=== PATIENT | female | born 1970 | race Caucasian/White ===

== ENCOUNTER 2017-11-19 11:57 | Emergency (ER) | payer MEDICAID ==
[~2017-11-19] VITALS: Ht 160 cm; Wt 72.6 kg
[2017-11-19 12:10] VITALS: BP 161/75
[2017-11-19] MEDS ORDERED: ORE25 PO (12:14)
[2017-11-19] MEDS ORDERED: AMLO10TA PO (12:14)
--- NOTE | 2017-11-19 12:18 | NUR ---
47Y/F BIB SELF C/O DIARRHEA X 2 DAYS, AND PAIN TO THE BACK OF HER NECK AND PALPITATIONS LAST NIGHT WITH SOME NAUSEA TODAY; DENIES VOMITING; PT C/O FEELING ANXIOUS ALL OVER HER BODY AND FEELING HER HEART POUNDING. AAOX4, PATIENT STATES PAIN OF 0/10 AT THIS TIME; VSS; PATIENT POSITIONED FOR COMFORT; HOB ELEVATED; BEDRAILS UP X 1; BED DOWN. ER MD MADE AWARE OF PT STATUS.
--- NOTE | 2017-11-19 12:50 | NUR ---
Patient discharged with v/s stable. Written and verbal after care instructions given and explained. Patient alert, oriented and verbalized understanding of instructions. Ambulatory with steady gait. All questions addressed prior to discharge. ID band removed. Patient advised to follow up with PMD. Rx of zofran and lomotil given. Patient educated on indication of medication including possible reaction and side effects. Opportunity to ask questions provided and answered.
[2017-11-19 12:51] VITALS: BP 158/73
== END 2017-11-19 12:50 | disposition home or self-care (01) ==
LOC: MED 11:57
DX: R11.0 Nausea (principal); R19.7 Diarrhea, unspecified; G44.209 Tension-type headache, unspecified, not intractable; F43.9 Reaction to severe stress, unspecified; F41.9 Anxiety disorder, unspecified; I10 Essential (primary) hypertension; Z79.899 Other long term (current) drug therapy
CPT/HCPCS: 99283

== ENCOUNTER 2021-02-02 19:41 | Emergency (ER) | payer MEDICAID ==
[~2021-02-02] VITALS: Ht 157.5 cm; Wt 78.0 kg
[~2021-02-02 19:41] MED LIST: AMLO10TA PO; HYDR-4004 PO
[2021-02-02 19:46] VITALS: BP 162/93
--- NOTE | 2021-02-02 20:08 | NUR ---
PT BIB SELF FOR C/O CHEST PRESSURE THAT BEGAN SATURDAY 01/20. PT DENIES PAIN OR RADIATING DISCOMFORT. PT STATES SHE JUST WANTED TO COME IN AND MAKE SURE IT WAS NOTHING SERIOUS. DENIES N/V/D, FEVER, CHILLS, SOB. NO NOTED RESPIRATORY DISTRESS OR WEAKNESS. AMBULATORY. A & O X4. MED HX: HTN, HYPERTHYROID, ELEVATED CHOLESTEROL, VIT D DEF. ALLERGIES: NKA
[2021-02-02] MEDS ORDERED: ASPIRIN 325 MG TAB PO ONE (20:15)
[2021-02-02] MEDS ORDERED: LORazepam 1 MG TAB PO ONE (20:15)
--- NOTE | 2021-02-02 20:23 | NUR ---
LAB AT BEDSIDE.
--- NOTE | 2021-02-02 20:35 | NUR ---
XRAY AT BEDSIDE.
[2021-02-02 20:37] LABS: BASOPHILS # (AUTO) 0.1 K/uL (0.00-0.22); BASOPHILS % (AUTO) 0.9 % (0.0-2.0); EOSINOPHILS # (AUTO) 0.2 K/uL (0-0.4); EOSINOPHILS % (AUTO) 2.6 % (0.0-4.0); HEMATOCRIT 37.2 % (36-48); HEMOGLOBIN 12.9 g/dL (12.0-16.0); LYMPHOCYTES # (AUTO) 2.4 K/uL (2.5-16.5); LYMPHOCYTES % (AUTO) 27.7 % (20.5-51.1); MEAN CORPUSCULAR HEMOGLOBIN 30 pg (27-31); MEAN CORPUSCULAR HGB CONC 35 g/dL (33-37); MEAN CORPUSCULAR VOLUME 86.6 fL (80-94); MONOCYTES # (AUTO) 0.6 K/uL (0.8-1.0); MONOCYTES % (AUTO) 6.6 % (1.7-9.3); NEUTROPHILS # (AUTO) 5.4 K/uL (1.8-7.7); NEUTROPHILS % (AUTO) 62.2 % (42.2-75.2); PLATELET COUNT (AUTO) 299 K/uL (140-450); RED CELL DISTRIBUTION WIDTH 13.5 % (11.6-13.7); WHITE BLOOD COUNT (AUTO) 8.7 K/uL (4.8-10.8)
[2021-02-02 20:52] LABS: ANION GAP 11.7 (8-16); CARBON DIOXIDE 27.2 mmol/L (21-32); CREATININE 0.8 mg/dL (0.6-1.3); POTASSIUM 3.9 mmol/L (3.5-5.1); TOTAL BILIRUBIN 0.4 mg/dL (0.0-1.0)
--- NOTE | 2021-02-02 21:00 | NUR ---
PT REPORTS "I FEEL SO MUCH BETTER AFTER THE MEDICINE." PT REPORTS STRESS AT WORK AND HER MOTHER RECENTLY PASSED. ERMD MADE AWARE.
--- NOTE | 2021-02-02 21:39 | NUR ---
Patient discharged with v/s stable. Written and verbal after care instructions given and explained. Patient verbalized understanding. Ambulatory with steady gait. All questions addressed prior to discharge. Advised to follow up with PMD.
== END 2021-02-02 21:39 | disposition home or self-care (01) ==
LOC: MED 19:41
DX: R07.89 Other chest pain (principal); R20.2 Paresthesia of skin; I10 Essential (primary) hypertension; E07.9 Disorder of thyroid, unspecified; Z79.899 Other long term (current) drug therapy
CPT/HCPCS: 36415; 71045; 80053; 84484; 85025; 93005; 99285

== ENCOUNTER 2023-03-27 18:47 | Emergency (ER) | payer MEDICAID ==
[~2023-03-27] VITALS: Ht 157.5 cm; Wt 83.9 kg
[2023-03-27 19:30] VITALS: BP 139/90; PULSE 82; RESP 16; TEMP 98.1; O2SAT 100
[2023-03-27 20:51] LABS: APPEARANCE,URINE CLEAR (CLEAR); BILIRUBIN,URINE NEGATIVE (NEGATIVE); BLOOD, URINE NEGATIVE (NEGATIVE); COLOR,URINE YELLOW (YELLOW); LEUKOCYTE ESTERASE ,URINE TRACE (NEGATIVE); NITRITE, URINE NEGATIVE (NEGATIVE); PROTEIN,URINE NEGATIVE (NEGATIVE); UGLUCOSE NEGATIVE (NEGATIVE); UROBILINOGEN,URINE 0.2 EU/dL (0.2 - 1)
[2023-03-27 20:59] LABS: BACTERIA,URINE None Seen /HPF (None Seen); MUCUS,URINE 3+ /LPF (None Seen); RBC,URINE 0-5 /HPF (0-5); SQUAMOUS EPITHELIAL CELL,UR 4-10 (MOD) /LPF (0-3 (FEW)); TRICHOMONAS,URINE None Seen /HPF (None Seen); WBC,URINE 0-5 /HPF (0-5); YEAST,URINE None Seen /HPF (None Seen)
[2023-03-27 21:01] LABS: BASOPHILS % (AUTO) 0.3 % (0.0-2.0); EOSINOPHILS # (AUTO) 0.2 K/uL (0-0.4); EOSINOPHILS % (AUTO) 2.7 % (0.0-4.0); HEMATOCRIT 39.6 % (36-48); HEMOGLOBIN 13.6 g/dL (12.0-16.0); LYMPHOCYTES # (AUTO) 1.4 K/uL (2.5-16.5); LYMPHOCYTES % (AUTO) 16.4 % (20.5-51.1); MEAN CORPUSCULAR HEMOGLOBIN 29 pg (27-31); MEAN CORPUSCULAR HGB CONC 34 g/dL (33-37); MEAN CORPUSCULAR VOLUME 84.5 fL (80-94); MONOCYTES # (AUTO) 0.4 K/uL (0.8-1.0); MONOCYTES % (AUTO) 4.7 % (1.7-9.3); NEUTROPHILS # (AUTO) 6.3 K/uL (1.8-7.7); NEUTROPHILS % (AUTO) 75.9 % (42.2-75.2); PLATELET COUNT (AUTO) 283 K/uL (140-450); RED BLOOD CELL COUNT(AUTO) 4.69 MIL/uL (4.20-5.40); RED CELL DISTRIBUTION WIDTH 13.8 % (11.6-13.7); WHITE BLOOD COUNT (AUTO) 8.4 K/uL (4.8-10.8)
[2023-03-27 21:23] LABS: ALBUMIN 3.7 g/dL (3.4-5.0); ANION GAP 14.8 (8-16); CALCIUM 8.9 mg/dL (8.5-10.1); CARBON DIOXIDE 26.1 mmol/L (21-32); CREATININE 0.9 mg/dL (0.6-1.3); POTASSIUM 3.9 mmol/L (3.5-5.1); TOTAL BILIRUBIN 0.6 mg/dL (0.0-1.0); TOTAL PROTEIN, SERUM 7.4 g/dL (6.4-8.2)
[2023-03-27 23:03] LABS: INR 1.02 (0.8-1.2); PARTIAL THROMBOPLASTIN TIME 30.4 secs (22-35.6); PROTHROMBIN TIME 10.7 secs (10.8-13.4)
[2023-03-28 01:08] LABS: FLU A ANTIGEN negative (NEGATIVE); FLU B ANTIGEN NEGATIVE (NEGATIVE)
[2023-03-28] MEDS ORDERED: ONDA-188 SL (04:38)
[2023-03-28 05:07] VITALS: BP 115/76; PULSE 80; RESP 16; TEMP 98.1; O2SAT 99
== END 2023-03-28 05:07 | disposition home or self-care (01) ==
LOC: MED 18:47
DX: R10.9 Unspecified abdominal pain (principal); R00.2 Palpitations; R11.2 Nausea with vomiting, unspecified; M79.602 Pain in left arm; I10 Essential (primary) hypertension; Z79.899 Other long term (current) drug therapy
CPT/HCPCS: 36415; 71045; 74177; 80053; 81001; 83690; 84484; 85025; 85610; 85730; 87426; 87804; 93005; 99285; Q9967

== ENCOUNTER 2023-08-25 22:18 | Emergency (ER) | payer MEDICAID ==
[~2023-08-25] VITALS: Ht 157.5 cm; Wt 86.2 kg
[~2023-08-25 22:18] MED LIST changes: +ONDA-188 SL
[2023-08-25 22:27] VITALS: BP 153/89; PULSE 69; RESP 15; TEMP 97.9; O2SAT 98
[2023-08-25] MEDS ORDERED: IBUP-2213 PO (23:04)
[2023-08-25] MEDS ORDERED: ACET-503 PO (23:04)
[2023-08-25] MEDS: KETOROLAC 60 MG/2 ML VIAL IM ONE (23:08)
[2023-08-26] MEDS ORDERED: ACET-503 PO (17:55)
== END 2023-08-25 23:20 | disposition home or self-care (01) ==
LOC: MED 22:18
DX: M25.561 Pain in right knee (principal); I10 Essential (primary) hypertension; Z79.899 Other long term (current) drug therapy
CPT/HCPCS: 73562; 96372; 99283; J1885; Q0092

== ENCOUNTER 2024-02-25 10:07 | Emergency (ER) | payer MEDICAID ==
[~2024-02-25] VITALS: Ht 158.8 cm; Wt 85.8 kg
[~2024-02-25 10:07] MED LIST changes: +ACET-503 PO; +IBUP-2213 PO
[2024-02-25 10:09] VITALS: BP 154/62; PULSE 58; RESP 20; TEMP 97.2; O2SAT 100
[2024-02-25] MEDS: KETOROLAC 30 MG/ML VIAL IVP ONE (11:36)
[2024-02-25 11:44] LABS: BASOPHILS # (AUTO) 0.1 K/uL (0.00-0.22); EOSINOPHILS # (AUTO) 0.2 K/uL (0-0.4); HEMATOCRIT 39.1 % (36-48); HEMOGLOBIN 13.3 g/dL (12.0-16.0); LYMPHOCYTES # (AUTO) 2.4 K/uL (2.5-16.5); LYMPHOCYTES % (AUTO) 28.9 % (20.5-51.1); MEAN CORPUSCULAR HEMOGLOBIN 29 pg (27-31); MEAN CORPUSCULAR HGB CONC 34 g/dL (33-37); MEAN CORPUSCULAR VOLUME 84.4 fL (80-94); MONOCYTES # (AUTO) 0.4 K/uL (0.8-1.0); MONOCYTES % (AUTO) 5.3 % (1.7-9.3); NEUTROPHILS # (AUTO) 5.1 K/uL (1.8-7.7); NEUTROPHILS % (AUTO) 61.8 % (42.2-75.2); PLATELET COUNT (AUTO) 313 K/uL (140-450); RED BLOOD CELL COUNT(AUTO) 4.63 MIL/uL (4.20-5.40); WHITE BLOOD COUNT (AUTO) 8.3 K/uL (4.8-10.8)
[2024-02-25 11:56] LABS: ANION GAP 9.2 (8-16); CALCIUM 9.1 mg/dL (8.5-10.1); CARBON DIOXIDE 29.4 mmol/L (21-32); CREATININE 0.8 mg/dL (0.6-1.3); POTASSIUM 3.6 mmol/L (3.5-5.1)
[2024-02-25 12:26] LABS: INR 0.98 (0.8-1.2); PARTIAL THROMBOPLASTIN TIME 27.4 secs (22-35.6); PROTHROMBIN TIME 10.3 secs (10.8-13.4)
[2024-02-25] MEDS ORDERED: NAPR-1704 PO (13:20)
[2024-02-25 14:00] VITALS: BP 116/74; PULSE 85; RESP 17; TEMP 98; O2SAT 98
== END 2024-02-25 14:01 | disposition home or self-care (01) ==
LOC: MED 10:07
DX: R07.89 Other chest pain (principal); M19.011 Primary osteoarthritis, right shoulder; I10 Essential (primary) hypertension; E78.5 Hyperlipidemia, unspecified; E03.9 Hypothyroidism, unspecified; Z79.899 Other long term (current) drug therapy
CPT/HCPCS: 36415; 71045; 73030; 80048; 83880; 84484; 85025; 85610; 85730; 93005; 96374; 99285; J1885